=== PATIENT | male | born 1995 | race African-American/Black ===

== ENCOUNTER 2020-06-08 19:00 | Inpatient (IN) | payer OTHER ==
[2020-06-08 19:19] VITALS: BMI 22.9
[2020-06-08] MEDS ORDERED: SODIUM CHLORIDE 1,000 ML IV STA (19:19)
[2020-06-08] MEDS ORDERED: ACETAMINOPHEN 1000 MG/100 ML VIAL (NON FORMULARY) IVPB ONE (19:19)
--- NOTE | 2020-06-08 19:21 | PDOC ---
Rapid Medical Evaluation Time Seen by Provider: 06/08/20 19:19 Medical Evaluation: Vital Signs Temp Pulse Resp BP Pulse Ox 101.6 F H 93 H 19 112/66 100 06/08/20 19:14 06/08/20 19:14 06/08/20 19:14 06/08/20 19:14 06/08/20 19:14 06/08/20 19:20 CC: ate out yesterday and started vomiting an hour after and now feels dehydrated and weak Exam: febrile, no abd tenderness, Plan: labs, ivf, Discharge Disposition - Diagnosis Vomiting - Referrals - Patient Instructions - Post Discharge Activity
[2020-06-08] MEDS ORDERED: ACETAMINOPHEN INJECTION 100 ML IVPB ONE (21:40)
[2020-06-08 21:53] LABS: BASO % 0.3 % (0-2.0); EOS % 0.1 % (0-4.5); HEMATOCRIT 38.5 % (35.4-49); HEMOGLOBIN 12.8 GM/dL (11.7-16.9); LYMPH % 8.1 % (8-40); MCH 29.7 pg (25.7-33.7); MCHC 33.1 g/dl (32.0-35.9); MEAN CELL VOLUME 89.7 fl (80-96); MEAN PLT VOLUME 8.6 fl (7.5-11.1); MONO % 5.5 % (3.8-10.2); PLATELET COUNT 181 K/MM3 (134-434); RBC 4.29 M/mm3 (4.00-5.60); RDW 14.2 % (11.9-15.9); WHITE BLOOD COUNT 18.2 K/mm3 (4.0-10.0)
[2020-06-08 22:33] LABS: ALBUMIN 3.8 g/dl (3.4-5.0); BLOOD UREA NITROGEN 9.8 mg/dL (7-18); CALCIUM 9.4 mg/dL (8.5-10.1); CREATININE 1.1 mg/dL (0.55-1.3); MAGNESIUM 1.9 mg/dL (1.8-2.4); POTASSIUM 4.1 mmol/L (3.5-5.1); TOT PROT 7.7 g/dl (6.4-8.2)
[2020-06-08 22:47] LABS: BILIRUBIN,TOTAL 0.9 mg/dL (0.2-1)
[2020-06-08 23:24] LABS: PH,URINE 6.5 (5.0-8.0); URINE APPEARANCE CLEAR; URINE BILIRUBIN NEGATIVE (NEGATIVE); URINE COLOR YELLOW; URINE GLUCOSE (UA) NEGATIVE (NEGATIVE); URINE KETONE NEGATIVE (NEGATIVE); URINE LEUK ESTERASE NEGATIVE (NEGATIVE); URINE NITRITE NEGATIVE (NEGATIVE); URINE PROTEIN NEGATIVE (NEGATIVE)
--- NOTE | 2020-06-09 00:05 | PDOC ---
*Physical Exam - Vital Signs Last Vital Signs Temp Pulse Resp BP Pulse Ox 99.9 F H 78 18 105/64 100 06/08/20 23:03 06/08/20 23:03 06/08/20 23:03 06/08/20 23:03 06/08/20 23:03 - Physical Exam 06/09/20 00:02 - Physical Exam General Appearance: Nourished, Appropriately Dressed, No Distress HEENT: EOMI, Normal Voice, No Pharyngeal Erythema, No Muffled/Hoarse voice, No T onsillar Exudate, No Tonsillar Erythema, No Nasal Congestion, No Rhinorrhea, Hearing Grossly Normal Neck: Supple, No Lymphadenopathy (R), No Lymphadenopathy (L), No Rigidity, No Decreased range of motion Respiratory/Chest: Lungs Clear, Normal Breath Sounds. No Respiratory Distress, No Accessory Muscle Use Cardiovascular: Regular Rhythm, Regular Rate, S1, S2 Gastrointestinal/Abdominal: Normal Bowel Sounds, Soft. Non-tender, No Guarding, No Rebound, No Rigidity; no reproducible abdominal tenderness. Musculoskeletal: Normal Inspection. No Decreased Range of Motion; right foot with quarter sized area to the medial aspect of the midfoot with induration and erythema appreciated. Significant swelling of the entire right foot. DP and PT pulses intact. Erythema appreciated without red streaking. Extremity: Normal Capillary Refill, Normal Inspection Integumentary: Normal Color, Dry. No Rash Neurologic: gluing machine offbearer II-XII NML intact, Fully Oriented, Alert, Normal Mood/Affect, Normal Response ED Treatment Course - LABORATORY CBC & Chemistry Diagram: 06/08/20 21:30 06/08/20 21:30 - ADDITIONAL ORDERS Additional order review: Laboratory Results 06/08/20 06/08/20 23:16 21:30 Sodium 135 L Potassium 4.1 Chloride 102 Carbon Dioxide 26 Anion Gap 8 BUN 9.8 Creatinine 1.1 Est GFR (CKD-EPI)AfAm 108.32 Est GFR (CKD-EPI)NonAf 93.46 Random Glucose 88 Calcium 9.4 Magnesium 1.9 Total Bilirubin 0.9 AST 36 ALT 24 Alkaline Phosphatase 59 Total Protein 7.7 Albumin 3.8 Lipase 355 Urine Color Yellow Urine Appearance Clear Urine pH 6.5 Ur Specific [place] 1.012 Urine Protein Negative Urine Glucose (UA) Negative Urine Ketones Negative Urine Blood Negative Urine Nitrite Negative Urine Bilirubin Negative Urine Urobilinogen 1.0 Ur Leukocyte Esterase Negative 06/08/20 21:30 RBC 4.29 MCV 89.7 MCHC 33.1 RDW 14.2 MPV 8.6 Neutrophils % 86.0 H Lymphocytes % 8.1 Monocytes % 5.5 Eosinophils % 0.1 Basophils % 0.3 - RADIOLOGY Radiology Studies Ordered: Category Date Time Status CHEST PA & LAT [RAD] Stat Radiology 06/08/20 22:37 Completed - Medications Given in the ED: ED Medications Discontinued Medications Generic Name Dose Route Start Last Admin Trade Name Mariela PRN Reason Stop Dose Admin Acetaminophen 1,000 mg 06/08/20 19:19 06/08/20 21:40 Ofirmev Injection - IVPB 06/08/20 19:20 1,000 mg ONCE ONE Administration Sodium Chloride 1,000 mls @ 1,000 mls/hr 06/08/20 19:19 06/08/20 21:39 Normal Saline - IV 06/08/20 20:18 1,000 mls/hr ASDIR STA Administration Medical Decision Making - Medical Decision Making 06/09/20 00:04 Assessment: The patient was endorsed to me by JOSÉ MIGUEL Foley for continuation of car [employer]. The patient is a 25-year-old male with right foot cellulitis with medial midfoot induration, and elevated WBC and fevers. Plan: -Labs show an elevated white count of 18.2k -Chest x-ray is negative for acute pathology -We will treat the patient for a right foot cellulitis with IV vancomycin and ceftriaxone and will admit for further evaluation and treatment -The patient understands and agrees with this treatment plan and he is stable for admission. Admitting team paged. 06/09/20 00:24 Pt endorsed to hospitalist team and accepted to Dr. Loraine Vigil's service. Pt stable at time of endorsement. Discharge - Discharge Information Problems reviewed: Yes Clinical Impression/Diagnosis: Vomiting, Cellulitis of right foot Condition: Stable - Admission Yes - Follow up/Referral Referrals: Sophy Jean MD [Primary Care Provider] - - Patient Discharge Instructions - Post Discharge Activity
[2020-06-09] MEDS ORDERED: VANCOMYCIN 1 GM in D5W (PRE-DOCKED) 1,000 MG/250 ML IVPB ONE (00:06)
[2020-06-09] MEDS ORDERED: CEFTRIAXONE 1,000 MG in DEXTROSE 5%-WATER - 50 ML IVPB ONE (00:06)
[2020-06-09] MEDS ORDERED: VANCOMYCIN 1 GRAM (PRE-DOCKED) 1,000 MG/250 ML BAG IVPB ONE (00:16)
[2020-06-09] MEDS ORDERED: CEFTRIAXONE 1 GM/50 ML BAG ONE (00:16)
--- NOTE | 2020-06-09 01:06 | PN ---
Teaching Attending Note Name of Resident: Tammi Aguilar ATTENDING PHYSICIAN STATEMENT I saw and evaluated the patient. I reviewed the resident's note and discussed the case with the resident. I agree with the resident's findings and plan as documented. SUBJECTIVE: 25yoM without significant PMH who presents with 1 day of nausea and vomiting, fevers/chills, and right foot pain. Patient reports about a month ago he had significant nausea/vomiting for about a day that resolved spontaneously. Last night he had similar symptoms, believes the emesis may have been pink tinged but didn't look closely. He had about five episodes and developed subjective fever and chills, which improved after sitting in a hot shower for about 3 hours this morning. The fever and chills returned later in the day so he decided to present to the ED, which is when he first noticed pain on his right foot as he was walking. Denies trauma, IVDU, insect bites. Does admit to chronic marijuana use daily. Patient was febrile to 101.6F in the ED, labs notable for WBC 18.2. Tender nodule noted on the plantar aspect of his right foot. XR of the foot was ob tained, read pending. He received ceftriaxone, vancomycin, and 1L NS bolus and is admitted for further management. At time of evaluation, patient notes the swelling on his foot and the nodule appear larger than at the time of arrival. ROS: (+) right foot pain, redness, fever/chills (-) diarrhea, constipation, abdominal pain, paresthesias OBJECTIVE: Vital Signs - 24 hr 06/08/20 06/08/20 19:14 23:03 Temperature 101.6 F H 99.9 F H Pulse Rate 93 H Pulse Rate [ 78 Apical] Respiratory 19 18 Rate Blood Pressure 112/66 Blood Pressure 105/64 [Right Arm] O2 Sat by Pulse 100 100 Oximetry (%) Exam: Gen: Well-appearing young man, no acute distress HEENT: Anicteric sclera CV: RRR, no MRG Resp: Unlabored breathing, CTAB Abd: Soft, NT, ND Derm: Right foot nonpitting edema to ankle. Roughly 2cm x 3cm area of discrete swelling on medial/plantar aspect of right foot at the arch, tender to palpation, fluctuance not appreciated. No open wound or purulence. Mild erythema above the nodule, no warmth to the touch Neuro: CN II-XII grossly intact Psych: AOx3, appropriate mood/affect Laboratory Results - last 24 hr 06/08/20 06/08/20 06/08/20 21:30 21:30 23:16 WBC 18.2 H RBC 4.29 Hgb 12.8 Hct 38.5 MCV 89.7 MCH 29.7 MCHC 33.1 RDW 14.2 Plt Count 181 MPV 8.6 Absolute Neuts (auto) 15.7 H Neutrophils % 86.0 H Lymphocytes % 8.1 Monocytes % 5.5 Eosinophils % 0.1 Basophils % 0.3 Nucleated RBC % 0 Sodium 135 L Potassium 4.1 Chloride 102 Carbon Dioxide 26 Anion Gap 8 BUN 9.8 Creatinine 1.1 Est GFR (CKD-EPI)AfAm 108.32 Est GFR (CKD-EPI)NonAf 93.46 Random Glucose 88 Calcium 9.4 Magnesium 1.9 Total Bilirubin 0.9 AST 36 ALT 24 Alkaline Phosphatase 59 Total Protein 7.7 Albumin 3.8 Lipase 355 Urine Color Yellow Urine Appearance Clear Urine pH 6.5 Ur Specific [place] 1.012 Urine Protein Negative Urine Glucose (UA) Negative Urine Ketones Negative Urine Blood Negative Urine Nitrite Negative Urine Bilirubin Negative Urine Urobilinogen 1.0 Ur Leukocyte Esterase Negative ASSESSMENT AND PLAN: 25yoM without significant PMH who presents with 1 day of nausea and vomiting, fevers/chills, and right foot pain admitted with sepsis secondary to cellulitis of the right foot. Sepsis secondary to cellulitis Meets sepsis criteria with fever, leukocytosis Suspect purulent cellulitis given discrete swelling on the foot s/p ceftriaxone/vancomycin in ED Blood cultures obtained after first dose of antibiotics - US to look for abscess - f/u blood cultures - continue empiric vancomycin Nausea/vomiting; resolved Abdominal exam benign, last episode of vomiting was >12h prior to admission and is currently asymptomatic In setting of chronic/frequent marijuana use; improved with hot shower, suggestive of cannabinoid hyperemesis Reports possible pink-tinged emesis; hgb within normal - advised marijuana cessation - Zofran PRN - trend hgb DVT ppx: Lovenox subq
[2020-06-09] MEDS ORDERED: ONDANSETRON 4 MG TABLET PO ONE (01:51)
--- NOTE | 2020-06-09 02:11 | HP ---
CHIEF COMPLAINT: I was vomiting PCP: none stated HISTORY OF PRESENT ILLNESS: 25yo M with no PMHx who presents with nausea and emesis since Saturday evening and R foot cellulitis. Patient felt he might have eaten something bad and had about 4 episodes of pink/red emesis. He had a similar episode of emesis about a month ago, which he was able to overcome in one night by drinking gatorade. However, this time it felt worse which is why he came into the ED. Patient also noticed that he had a "bump" on his right foot and that his foot was swollen. He said the foot bump was new to him but that his food had been swollen in the past. Also, patient smokes marihuana daily and he took a 3h-long hot shower yesterday that helped him overcome some of the nausea. Patient endorsed feeling fevers, chills, mild headaches that he describes as pressure, lightheadedness, occasional vertigo, and extensive diaphoresis. Patient denied dysuria, urinary frequency, diarrhea or constipation. Patient is sexually active with one female partner, they do not use barrier contraception. COVID pending. 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 Home: lives with his grandmother Allergies No Known Allergies Allergy (Verified 06/08/20 21:14) HOME MEDICATIONS: none REVIEW OF SYSTEMS as per HPI PHYSICAL EXAMINATION Vital Signs - 24 hr 06/08/20 06/08/20 19:14 23:03 Temperature 101.6 F H 99.9 F H Pulse Rate 93 H Pulse Rate [ 78 Apical] Respiratory 19 18 Rate Blood Pressure 112/66 Blood Pressure 105/64 [Right Arm] O2 Sat by Pulse 100 100 Oximetry (%) GENERAL: AAM, average to thin body habitus, comfortably sitting in a chair, AAO x3 and fully oriented, in no acute distress HEAD: Normal with no signs of trauma EYES: PERRL, extraocular movements intact, sclera anicteric NECK: no lymphadenopathy appreciated LUNGS: CTAB without any wheezing HEART: RRR, normal S1 and S2 without murmur ABDOMEN: Soft, nontender, not distended, active bowel sounds MUSCULOSKELETAL: Normal range of motion at all joints EXTREMITIES: 2+ radial pulses and 1+ dorsalis pedis pulses palpable, bilateral lower legs are warm-hot to touch, well-perfused, bilateral legs nontender to touch, no peripheral lower leg edema. R foot edematous, non pitting, with a medial nodule/cyst in area of sustentaculum lien which is tender to palpation and with mild surrounding erythema. Skin in 2nd-4th toe webspaces mildly macerated and flaking, no active open wounds/lesions noted. L foot non- edematous, nontender, nonerythematous. Skin in 3rd and 4th toe webspace also mildly macerated and flaking without active lesions. Sensation intact bilaterally in all extremities. NEUROLOGICAL: Cranial nerves II-XII grossly intact with normal speech and symmetrical facial movements. Normal gait. PSYCHIATRIC: Cooperative, interactive, responds appropriately. Good eye contact. "feels okay" mood and affect congruent with stated mood. SKIN: no rashes or lesions noted Laboratory Results - last 24 hr 06/08/20 06/08/20 06/08/20 21:30 21:30 23:16 WBC 18.2 H RBC 4.29 Hgb 12.8 Hct 38.5 MCV 89.7 MCH 29.7 MCHC 33.1 RDW 14.2 Plt Count 181 MPV 8.6 Absolute Neuts (auto) 15.7 H Neutrophils % 86.0 H Lymphocytes % 8.1 Monocytes % 5.5 Eosinophils % 0.1 Basophils % 0.3 Nucleated RBC % 0 Sodium 135 L Potassium 4.1 Chloride 102 Carbon Dioxide 26 Anion Gap 8 BUN 9.8 Creatinine 1.1 Est GFR (CKD-EPI)AfAm 108.32 Est GFR (CKD-EPI)NonAf 93.46 Random Glucose 88 Calcium 9.4 Magnesium 1.9 Total Bilirubin 0.9 AST 36 ALT 24 Alkaline Phosphatase 59 Total Protein 7.7 Albumin 3.8 Lipase 355 Urine Color Yellow Urine Appearance Clear Urine pH 6.5 Ur Specific [place] 1.012 Urine Protein Negative Urine Glucose (UA) Negative Urine Ketones Negative Urine Blood Negative Urine Nitrite Negative Urine Bilirubin Negative Urine Urobilinogen 1.0 Ur Leukocyte Esterase Negative ASSESSMENT/PLAN: 25yo M with no PMHx who presents with nausea and emesis since Saturday evening and R foot cellulitis. ED course was remarkable for Temp 101.6F, Pulse 93, and WBC 18.2 with neutrophilic predominance. Patient admitted for further management of sepsis 2/2 R foot cellulitis. #R foot cellulitis received IV vancomycin and ceftriaxone in ED - blood cultures were drawn after - ordered soft tissue US to determine if cellulitis is purulent vs non-purulent - f/u - if abscess present, patient pay need L&D - continue IV vancomycin 1g BID - may consider ordering STD testing including chlamydia and gonorrhea #emesis likely 2/2 to daily marihuana use currently resolved - recommended decreasing marihuana usage - ordered zofran PRN #PPX - DVT: lovenox #FEN - no standing fluids - replete lytes PRN - regular diet #Dispo: medSur Family Medical History Family History: As Documented Visit type - Emergency Visit Emergency Visit: Yes ED Registration Date: 06/09/20 Care time: The patient presented to the Emergency Department on the above date and was hospitalized for further evaluation of their emergent condition. - New Patient This patient is new to me today: Yes Date on this admission: 06/09/20 - Critical Care Critical Care patient: No ATTENDING PHYSICIAN STATEMENT I saw and evaluated the patient. I reviewed the resident's note and discussed the case with the resident. I agree with the resident's findings and plan as documented. SUBJECTIVE: OBJECTIVE: ASSESSMENT AND PLAN:
[2020-06-09 08:27] LABS: BASO % 0.4 % (0-2.0); EOS % 0.7 % (0-4.5); HEMOGLOBIN 12.1 GM/dL (11.7-16.9); LYMPH % 12.5 % (8-40); MCH 29.2 pg (25.7-33.7); MCHC 32.7 g/dl (32.0-35.9); MEAN CELL VOLUME 89.5 fl (80-96); MEAN PLT VOLUME 8.7 fl (7.5-11.1); MONO % 6.2 % (3.8-10.2); NEUT % 80.2 % (42.8-82.8); PLATELET COUNT 169 K/MM3 (134-434); RBC 4.14 M/mm3 (4.00-5.60); RDW 14.4 % (11.9-15.9); WHITE BLOOD COUNT 12.1 K/mm3 (4.0-10.0)
[2020-06-09 08:45] LABS: ALBUMIN 3.3 g/dl (3.4-5.0); BILIRUBIN,TOTAL 0.4 mg/dL (0.2-1); BLOOD UREA NITROGEN 10.5 mg/dL (7-18); CALCIUM 8.4 mg/dL (8.5-10.1); MAGNESIUM 1.7 mg/dL (1.8-2.4); POTASSIUM 4.1 mmol/L (3.5-5.1); TOT PROT 6.6 g/dl (6.4-8.2)
[2020-06-09 08:47] LABS: PHOSPHOROUS 2.4 mg/dL (2.5-4.9)
[2020-06-09] MEDS ORDERED: PT OWN MED DRAWER 7, Y5N ONE (10:35)
[2020-06-09] MEDS: ENOXAPARIN NA (PORCINE) 40 MG/0.4 ML DISP.SYRIN SQ SCH ×2 (10:37→10:42)
[2020-06-09] MEDS ORDERED: VANCOMYCIN 1 GM in D5W (PRE-DOCKED) 1,000 MG/250 ML IVPB SCH ×2 (11:15→13:00)
--- NOTE | 2020-06-09 13:16 | PN ---
Teaching Attending Note Name of Resident: Rose Jay ATTENDING PHYSICIAN STATEMENT I saw and evaluated the patient. I reviewed the resident's note and discussed the case with the resident. I agree with the resident's findings and plan as documented. SUBJECTIVE: Seen and examined at bedside. Patient reports nausea and vomiting have reso lved. Afebrile since starting antibiotics. White count has improved. Pending ultrasound of foot to check for drainable abscess \ OBJECTIVE Last Vital Signs Temp Pulse Resp BP Pulse Ox 98.6 F 70 18 101/57 L 98 06/09/20 08:45 06/09/20 08:45 06/09/20 08:45 06/09/20 08:45 06/09/20 08:45 PE: Per resident note Labs/Imaging: reviewed ASSESSMENT/PLAN 25 old male with no past medical history presents with nausea and vomiting and found to have fever, white count, and suspected right foot cellulitis. #Sepsis secondary to cellulitis of right foot Appears to be area of purulence. Pending ultrasound Vancomycin ID consult #Nausea and vomiting: Resolved Likely atypical presentation of sepsis #DVT prophylaxis: Not required as patient young and ambulatory
[2020-06-09] MEDS: ACETAMINOPHEN 325 MG TABLET (FP) PO PRN (13:19)
[2020-06-09] MEDS ORDERED: DEXTROSE 5%-WATER - 50 ML IVPB ONE (14:01)
[2020-06-09] MEDS ORDERED: cefTRIAXone SODIUM 1 GM VIAL ONE (14:01)
[2020-06-09] MEDS: CEFTRIAXONE 1 GM in DEXTROSE 5%-WATER - 50 ML IVPB SCH (14:02)
--- NOTE | 2020-06-09 14:02 | CON.ID ---
Consult - Smoking History Smoking history: Never smoked Home Medications - Allergies Allergies/Adverse Reactions: Allergies Allergy/AdvReac Type Severity Reaction Status Date / Time No Known Allergies Allergy Verified 06/08/20 21:14 Physical Exam Vital Signs: Vital Signs Temperature 98.6 F 06/09/20 08:45 Pulse Rate 70 06/09/20 08:45 Respiratory Rate 18 06/09/20 08:45 Blood Pressure 101/57 L 06/09/20 08:45 O2 Sat by Pulse Oximetry (%) 98 06/09/20 08:45 Labs: CBC, BMP 06/09/20 07:00 06/09/20 07:00
--- NOTE | 2020-06-09 15:28 | EKG ---
Test Reason : Blood Pressure : / mmHG Vent. Rate : 061 BPM Atrial Rate : 061 BPM P-R Int : 134 ms QRS Dur : 078 ms QT Int : 406 ms P-R-T Axes : 066 065 044 degrees QTc Int : 408 ms NORMAL SINUS RHYTHM NORMAL ECG NO PREVIOUS ECGS AVAILABLE Confirmed by SERENITY RIDDLE MD ([id number]) on 06/09/2020 3:27:56 PM Referred By: Confirmed By:SERENITY RIDDLE MD
--- NOTE | 2020-06-09 15:56 | PN ---
Physical Exam: SUBJECTIVE: Patient seen and examined at bedside. No acute events overnight. Pt states he no longer has nausea/vomiting. Tolerating PO diet well. States he still has R foot pain. OBJECTIVE: Vital Signs Period Temp Pulse Resp BP Sys/Schmid Pulse Ox Last 24 Hr 97.9 F-101.6 F 54-93 18-19 101-123/57-70 98-100 GENERAL: AAM, average to thin body habitus, comfortably sitting in a chair, AAO x3 and fully oriented, in no acute distress HEAD: Normal with no signs of trauma EYES: PERRL, extraocular movements intact, sclera anicteric NECK: no lymphadenopathy appreciated LUNGS: CTAB without any wheezing HEART: RRR, normal S1 and S2 without murmur ABDOMEN: Soft, nontender, not distended, active bowel sounds MUSCULOSKELETAL: Normal range of motion at all joints EXTREMITIES: 2+ radial pulses and 1+ dorsalis pedis pulses palpable, bilateral lower legs are warm-hot to touch, well-perfused, bilateral legs nontender to touch, no peripheral lower leg edema. R foot edematous, non pitting, with a medial nodule/cyst in area of sustentaculum lien which is tender to palpation and with mild surrounding erythema. Skin in 2nd-4th toe webspaces mildly macerated and flaking, no active open wounds/lesions noted. L foot non- edematous, nontender, nonerythematous. Skin in 3rd and 4th toe webspace also mildly macerated and flaking without active lesions. Sensation intact bilaterally in all extremities. NEUROLOGICAL: Cranial nerves II-XII grossly intact with normal speech and symmetrical facial movements. Normal gait. PSYCHIATRIC: Cooperative, interactive, responds appropriately. Good eye contact. "feels okay" mood and affect congruent with stated mood. SKIN: no rashes or lesions noted Laboratory Results - last 24 hr 06/08/20 06/08/20 06/08/20 21:30 21:30 23:16 WBC 18.2 H RBC 4.29 Hgb 12.8 Hct 38.5 MCV 89.7 MCH 29.7 MCHC 33.1 RDW 14.2 Plt Count 181 MPV 8.6 Absolute Neuts (auto) 15.7 H Neutrophils % 86.0 H Lymphocytes % 8.1 Monocytes % 5.5 Eosinophils % 0.1 Basophils % 0.3 Nucleated RBC % 0 Sodium 135 L Potassium 4.1 Chloride 102 Carbon Dioxide 26 Anion Gap 8 BUN 9.8 Creatinine 1.1 Est GFR (CKD-EPI)AfAm 108.32 Est GFR (CKD-EPI)NonAf 93.46 Random Glucose 88 Calcium 9.4 Phosphorus Magnesium 1.9 Total Bilirubin 0.9 AST 36 ALT 24 Alkaline Phosphatase 59 Total Protein 7.7 Albumin 3.8 Lipase 355 Urine Color Yellow Urine Appearance Clear Urine pH 6.5 Ur Specific [place] 1.012 Urine Protein Negative Urine Glucose (UA) Negative Urine Ketones Negative Urine Blood Negative Urine Nitrite Negative Urine Bilirubin Negative Urine Urobilinogen 1.0 Ur Leukocyte Esterase Negative 06/09/20 06/09/20 07:00 07:00 WBC 12.1 H RBC 4.14 Hgb 12.1 Hct 37.0 MCV 89.5 MCH 29.2 MCHC 32.7 RDW 14.4 Plt Count 169 MPV 8.7 Absolute Neuts (auto) 9.7 H Neutrophils % 80.2 Lymphocytes % 12.5 D Monocytes % 6.2 Eosinophils % 0.7 D Basophils % 0.4 Nucleated RBC % 0 Sodium 138 Potassium 4.1 Chloride 106 Carbon Dioxide 27 Anion Gap 6 L BUN 10.5 Creatinine 1.0 Est GFR (CKD-EPI)AfAm 121.55 Est GFR (CKD-EPI)NonAf 104.88 Random Glucose 90 Calcium 8.4 L Phosphorus 2.4 L Magnesium 1.7 L Total Bilirubin 0.4 AST 19 ALT 20 Alkaline Phosphatase 50 Total Protein 6.6 Albumin 3.3 L Lipase Urine Color Urine Appearance Urine pH Ur Specific [place] Urine Protein Urine Glucose (UA) Urine Ketones Urine Blood Urine Nitrite Urine Bilirubin Urine Urobilinogen Ur Leukocyte Esterase Active Medications Generic Name Dose Route Start Last Admin Trade Name Freq PRN Reason Stop Dose Admin Acetaminophen 650 mg 06/09/20 13:10 06/09/20 13:19 Tylenol - PO 650 mg Q4H PRN Administration PAIN LEVEL 6-10 Ceftriaxone Sodium 1 gm/ 50 mls @ 100 mls/hr 06/09/20 13:45 06/09/20 14:02 Dextrose IVPB 100 mls/hr DAILY NAN Administration ASSESSMENT/PLAN: 25M with no PMHx who presents with nausea and emesis since Saturday evening and R foot cellulitis. Patient admitted for further management of sepsis 2/2 R foot cellulitis. #R foot cellulitis -received IV vancomycin and ceftriaxone in ED - blood cultures were drawn after -ordered soft tissue US to determine if cellulitis is purulent vs non-purulent - f/u - if abscess present, patient pay need L&D -continue IV Vancomycin 1g QD (started 06/09/20) -Ceftriaxone 1gm QD (started 06/09/20) -Tylenol PRN for pain -ID consulted -UA neg, BCx/UCx pending -WBC trending down 18.2 --> 12.1 #Emesis; Resolved. -Likely atypical presentation of sepsis vs. ? marijuana use -Zofran PRN nausea #Prophylaxis DVT: early ambulation #FEN -PO hydration -replete lytes PRN -regular diet #Dispo -cont to monitor on med-surg Visit type - Emergency Visit Emergency Visit: Yes ED Registration Date: 06/09/20 Care time: The patient presented to the Emergency Department on the above date and was hospitalized for further evaluation of their emergent condition. - New Patient This patient is new to me today: Yes Date on this admission: 06/09/20 - Critical Care Critical Care patient: No - Discharge Referral Referred to [facility] No ATTENDING PHYSICIAN STATEMENT I saw and evaluated the patient. I reviewed the resident's note and discussed the case with the resident. I agree with the resident's findings and plan as documented. SUBJECTIVE: OBJECTIVE: ASSESSMENT AND PLAN:
[2020-06-09] MEDS ORDERED: NAPH,MB-DB/K PH,MBDB POWDER PACKET PO ONE (15:57)
[2020-06-09] MEDS ORDERED: MAGNESIUM OXIDE 400 MG TABLET (FP) PO ONE (15:57)
[2020-06-10 08:07] LABS: BASO % 0.6 % (0-2.0); EOS % 2.4 % (0-4.5); HEMATOCRIT 37.9 % (35.4-49); HEMOGLOBIN 12.5 GM/dL (11.7-16.9); LYMPH % 24.7 % (8-40); MCH 29.6 pg (25.7-33.7); MEAN CELL VOLUME 89.5 fl (80-96); MEAN PLT VOLUME 8.3 fl (7.5-11.1); MONO % 11.5 % (3.8-10.2); NEUT % 60.8 % (42.8-82.8); PLATELET COUNT 170 K/MM3 (134-434); RBC 4.24 M/mm3 (4.00-5.60); RDW 14.4 % (11.9-15.9); WHITE BLOOD COUNT 7.7 K/mm3 (4.0-10.0)
[2020-06-10 08:21] LABS: ALBUMIN 3.3 g/dl (3.4-5.0); BLOOD UREA NITROGEN 9.3 mg/dL (7-18); CALCIUM 8.7 mg/dL (8.5-10.1); MAGNESIUM 2.1 mg/dL (1.8-2.4); POTASSIUM 4.1 mmol/L (3.5-5.1)
[2020-06-10 08:22] LABS: BILIRUBIN,TOTAL 0.4 mg/dL (0.2-1); TOT PROT 6.7 g/dl (6.4-8.2)
[2020-06-10] MEDS ORDERED: PT OWN MED DRAWER 7, Y5N ONE (09:53)
[2020-06-10] MEDS ORDERED: cefTRIAXone SODIUM 1 GM VIAL ONE (09:54)
[2020-06-10] MEDS ORDERED: DEXTROSE 5%-WATER - 50 ML IVPB ONE (09:54)
[2020-06-10] MEDS: CEFTRIAXONE 1 GM in DEXTROSE 5%-WATER - 50 ML IVPB SCH (10:02)
--- NOTE | 2020-06-10 11:40 | PN ---
Progress Note, Physician History of Present Illness: stable still with pain in the leg - Current Medication List Current Medications: Active Medications Acetaminophen (Tylenol -) 650 mg PO Q4H PRN PRN Reason: PAIN LEVEL 6-10 Last Admin: 06/09/20 13:19 Dose: 650 mg Documented by: Ceftriaxone Sodium 1 gm/ (Dextrose) 50 mls @ 100 mls/hr IVPB DAILY NAN Last Admin: 06/10/20 10:02 Dose: 100 mls/hr Documented by: - Objective Vital Signs: Vital Signs Temperature 98.1 F 06/10/20 06:00 Pulse Rate 72 06/10/20 06:00 Respiratory Rate 20 06/10/20 06:00 Blood Pressure 111/64 06/10/20 06:00 O2 Sat by Pulse Oximetry (%) 98 06/10/20 06:00 Constitutional: Yes: No Distress, Calm Cardiovascular: Yes: S1, S2 Respiratory: Yes: Regular, CTA Bilaterally Gastrointestinal: Yes: Normal Bowel Sounds, Soft Musculoskeletal: Yes: WNL Extremities: Yes: WNL Neurological: Yes: Alert, Oriented Psychiatric: Yes: Alert, Oriented Labs: CBC, BMP 06/10/20 07:00 06/10/20 07:00 Assessment/Plan 25yo M with no PMHx who presents with nausea and emesis since Saturday evening and R foot cellulitis. ED course was remarkable for Temp 101.6F, Pulse 93, and WBC 18.2 with neutrophilic predominance. Patient admitted for further management of sepsis 2/2 R foot cellulitis. R foot cellulitis emesis marihuana use u/s seen patient has collection in the foot might need drainage continue abx
--- NOTE | 2020-06-10 12:00 | PN ---
Teaching Attending Note Name of Resident: Daksha Nur ATTENDING PHYSICIAN STATEMENT I saw and evaluated the patient. I reviewed the resident's note and discussed the case with the resident. I agree with the resident's findings and plan as documented. SUBJECTIVE: Seen and examined at bedside. Patient reports foot pain is improving. Hemody namically stable. Ultrasound shows complex collection over a ventral surface of the calcaneus that may represent a hematoma or infection/abscess. Podiatry consulted OBJECTIVE Last Vital Signs Temp Pulse Resp BP Pulse Ox 98.1 F 72 20 111/64 98 06/10/20 06:00 06/10/20 06:00 06/10/20 06:00 06/10/20 06:00 06/10/20 06:00 PE: Per resident note Labs/Imaging: reviewed ASSESSMENT/PLAN 25 old male with no past medical history presents with nausea and vomiting and found to have fever, white count, and suspected right foot cellulitis. #Sepsis secondary to cellulitis of right foot Ultrasound shows collection over a ventral surface of the calcaneus that may resent a hematoma or infection/abscess. Podiatry consulted -ceftriaxone ID on board #Nausea and vomiting: Resolved Likely atypical presentation of sepsis #DVT prophylaxis: Not required as patient young and ambulatory
--- NOTE | 2020-06-10 12:31 | PN ---
Physical Exam: SUBJECTIVE: Patient seen and examined this AM. No new complaints. OBJECTIVE: Vital Signs Period Temp Pulse Resp BP Sys/Shcmid Pulse Ox Last 24 Hr 98.1 F-98.9 F 63-72 18-20 111-128/54-71 98-99 GENERAL: A&Ox3, NAD HEAD: NCTA EYES: PERRL, EOMI NECK: Supple LUNGS: Diminished breath sounds at the bases, No wheezes HEART: RRR, S1 S2 ABDOMEN: Soft, nontender, not distended, + bowel sounds EXTREMITIES: no edema. R foot with mild overlying erythema, 1cm in diameter over the medial/plantar aspect, minimal tenderness to palpation NEUROLOGICAL: Cranial nerves II-XII grossly intact with normal speech and symmetrical facial movements. Normal gait. PSYCHIATRIC: Cooperative, interactive, responds appropriately. Good eye contact. "feels okay" mood and affect congruent with stated mood. SKIN: no rashes or lesions noted Laboratory Results - last 24 hr 06/08/20 06/10/20 06/10/20 20:21 07:00 07:00 WBC 7.7 RBC 4.24 Hgb 12.5 Hct 37.9 MCV 89.5 MCH 29.6 MCHC 33.0 RDW 14.4 Plt Count 170 MPV 8.3 Absolute Neuts (auto) 4.7 Neutrophils % 60.8 D Lymphocytes % 24.7 D Monocytes % 11.5 H D Eosinophils % 2.4 D Basophils % 0.6 Nucleated RBC % 0 Sodium 136 Potassium 4.1 Chloride 103 Carbon Dioxide 28 Anion Gap 5 L BUN 9.3 Creatinine 1.0 Est GFR (CKD-EPI)AfAm 121.55 Est GFR (CKD-EPI)NonAf 104.88 Random Glucose 85 Calcium 8.7 Phosphorus 3.0 Magnesium 2.1 Total Bilirubin 0.4 AST 17 ALT 21 Alkaline Phosphatase 44 L Total Protein 6.7 Albumin 3.3 L COVID-19 (JAG) Not detected Active Medications Generic Name Dose Route Start Last Admin Trade Name Freq PRN Reason Stop Dose Admin Acetaminophen 650 mg 06/09/20 13:10 06/09/20 13:19 Tylenol - PO 650 mg Q4H PRN Administration PAIN LEVEL 6-10 Ceftriaxone Sodium 1 gm/ 50 mls @ 100 mls/hr 06/09/20 13:45 06/10/20 10:02 Dextrose IVPB 100 mls/hr DAILY NAN Administration ASSESSMENT/PLAN: 25 y/o M with no PMHx who presents with nausea and emesis since Saturday evening and admitted with R foot cellulitis. #R foot cellulitis -Continue IV ceftriaxone (started 06/09/20) -Soft tissue US concerning for hematoma vs abscess -Case discussed with Podiatry who recommend LE MRI noncon, Uric acid -Analgesia via Tylenol -ID consulted, appreciate rec's #Emesis; Resolved. #Prophylaxis DVT: early ambulation #FEN -PO hydration -replete lytes PRN -regular diet #Dispo -cont to monitor on med-surg Visit type - Emergency Visit Emergency Visit: Yes ED Registration Date: 06/09/20 Care time: The patient presented to the Emergency Department on the above date and was hospitalized for further evaluation of their emergent condition. - New Patient This patient is new to me today: Yes Date on this admission: 06/10/20 - Critical Care Critical Care patient: No - Discharge Referral Referred to [facility] Med P.C.: No ATTENDING PHYSICIAN STATEMENT I saw and evaluated the patient. I reviewed the resident's note and discussed the case with the resident. I agree with the resident's findings and plan as documented. SUBJECTIVE: OBJECTIVE: ASSESSMENT AND PLAN:
[2020-06-11] MEDS: ACETAMINOPHEN 325 MG TABLET (FP) PO PRN (00:56)
[2020-06-11] MEDS ORDERED: DEXTROSE 5%-WATER - 50 ML IVPB ONE (09:36)
[2020-06-11] MEDS ORDERED: cefTRIAXone SODIUM 1 GM VIAL ONE (09:36)
[2020-06-11] MEDS: CEFTRIAXONE 1 GM in DEXTROSE 5%-WATER - 50 ML IVPB SCH (09:39)
--- NOTE | 2020-06-11 11:26 | PN ---
Progress Note, Physician History of Present Illness: stable doing well looks like the collection has resolved foot is soft - Current Medication List Current Medications: Active Medications Acetaminophen (Tylenol -) 650 mg PO Q4H PRN PRN Reason: PAIN LEVEL 6-10 Last Admin: 06/11/20 00:56 Dose: 650 mg Documented by: Ceftriaxone Sodium 1 gm/ (Dextrose) 50 mls @ 100 mls/hr IVPB DAILY NAN Last Admin: 06/11/20 09:39 Dose: 100 mls/hr Documented by: - Objective Vital Signs: Vital Signs Temperature 98.7 F 06/11/20 05:16 Pulse Rate 67 06/11/20 05:16 Respiratory Rate 06/11/20 05:16 Blood Pressure 116/59 L 06/11/20 05:16 O2 Sat by Pulse Oximetry (%) 97 06/11/20 05:16 Constitutional: Yes: No Distress, Calm Cardiovascular: Yes: S1, S2 Respiratory: Yes: Regular, CTA Bilaterally Gastrointestinal: Yes: Normal Bowel Sounds, Soft Musculoskeletal: Yes: WNL Extremities: Yes: Other Neurological: Yes: Alert, Oriented Psychiatric: Yes: Alert, Oriented Labs: CBC, BMP 06/10/20 07:00 06/10/20 07:00 Assessment/Plan 25yo M with no PMHx who presents with nausea and emesis since Saturday evening and R foot cellulitis. ED course was remarkable for Temp 101.6F, Pulse 93, and WBC 18.2 with neutrophilic predominance. Patient admitted for further management of sepsis 2/2 R foot cellulitis. R foot cellulitis emesis mariana use plan continue abx can be switched to oral when ready for discharge
--- NOTE | 2020-06-11 12:48 | CONSULT ---
Consult Consult Specialty:: Podiatry - History of Present Illness Chief Complaint: pt states he feels 100% better. History of Present Illness: cellulitis right foot possible abscess - Smoking History Smoking history: Never smoked Home Medications - Allergies Allergies/Adverse Reactions: Allergies Allergy/AdvReac Type Severity Reaction Status Date / Time No Known Allergies Allergy Verified 06/10/20 09:50 - Home Medications Home Medications: Ambulatory Orders Amoxicillin/Potassium Clav [Augmentin 875-125 Tablet] 1 each PO BID #8 tablet 06/12/20 Physical Exam Vital Signs: Vital Signs Temperature 97.9 F 06/11/20 09:00 Pulse Rate 65 06/11/20 09:00 Respiratory Rate 20 06/11/20 09:00 Blood Pressure 104/63 06/11/20 09:00 O2 Sat by Pulse Oximetry (%) 96 06/11/20 09:00 Extremities: Yes: Other (no evidence of cellulitis upon examination, -tender,) Labs: CBC, BMP 06/10/20 07:00 06/10/20 07:00 Assessment/Plan resolved cellulitis abscess Awaiting mri results. will decide tx plan once mri read. will follow till dc. viewed images on pt phone from initial visit till now.
--- NOTE | 2020-06-11 14:31 | PN ---
Physical Exam: SUBJECTIVE: Patient seen and examined at bedside, admitted for R calcaneal cellulitis, and to r/o osteomyelitis, WBC count markedly improved along w/ erythema/swelling/pain, awaiting Podiatry input to see if MRI necessary v.s. DC home on PO abx. VSS. OBJECTIVE: Vital Signs Period Temp Pulse Resp BP Sys/Schmid Pulse Ox Last 24 Hr 97.9 F-98.7 F 61-69 20-20 104-128/59-71 96-100 GENERAL: The patient is awake, alert, and fully oriented, in no acute distress. HEAD: Normal with no signs of trauma. EYES: PERRL, extraocular movements intact, sclera anicteric, conjunctiva clear. No ptosis. ENT: Ears normal, nares patent, oropharynx clear without exudates, moist mucous membranes. NECK: Trachea midline, full range of motion, supple. LUNGS: Breath sounds equal, clear to auscultation bilaterally, no wheezes, no crackles, no accessory muscle use. HEART: Regular rate and rhythm, S1, S2 without murmur, rub or gallop. ABDOMEN: Soft, nontender, nondistended, normoactive bowel sounds, no guarding, no rebound, no hepatosplenomegaly, no masses. EXTREMITIES: 2+ pulses, warm, well-perfused, minimal R DP edema, minimal erythema around calcaneus, able to bare weight NEUROLOGICAL: Cranial nerves II through XII grossly intact. Normal speech, gait not observed. PSYCH: Normal mood, normal affect. SKIN: Warm, dry, normal turgor, no rashes or lesions noted Laboratory Results - last 24 hr 06/10/20 07:00 Sodium 136 Potassium 4.1 Chloride 103 Carbon Dioxide 28 Anion Gap 5 L BUN 9.3 Creatinine 1.0 Est GFR (CKD-EPI)AfAm 121.55 Est GFR (CKD-EPI)NonAf 104.88 Random Glucose 85 Uric Acid 5.0 Calcium 8.7 Phosphorus 3.0 Magnesium 2.1 Total Bilirubin 0.4 AST 17 ALT 21 Alkaline Phosphatase 44 L Total Protein 6.7 Albumin 3.3 L Active Medications Generic Name Dose Route Start Last Admin Trade Name Freq PRN Reason Stop Dose Admin Acetaminophen 650 mg 06/09/20 13:10 06/11/20 00:56 Tylenol - PO 650 mg Q4H PRN Administration PAIN LEVEL 6-10 Ceftriaxone Sodium 1 gm/ 50 mls @ 100 mls/hr 06/09/20 13:45 06/11/20 09:39 Dextrose IVPB 100 mls/hr DAILY NAN Administration ASSESSMENT/PLAN: 25 M R calcaneal cellulitis improving Marijuana abuse Plan: Cont. IV Ceftriaxone, may consider PO Augmentin 875mg BID if podiatry clears Otherwise patient will require MRI to r/o osteomyelitis DVT ppx: Ambulation Visit type - Emergency Visit Emergency Visit: Yes ED Registration Date: 06/09/20 Care time: The patient presented to the Emergency Department on the above date and was hospitalized for further evaluation of their emergent condition. - New Patient This patient is new to me today: Yes Date on this admission: 06/11/20 - Critical Care Critical Care patient: No - Discharge Referral Referred to [facility] Med P.C.: No
[2020-06-12] MEDS ORDERED: cefTRIAXone SODIUM 1 GM VIAL ONE (09:23)
[2020-06-12] MEDS ORDERED: DEXTROSE 5%-WATER - 50 ML IVPB ONE (09:23)
[2020-06-12] MEDS: CEFTRIAXONE 1 GM in DEXTROSE 5%-WATER - 50 ML IVPB SCH (09:26)
[2020-06-12] MEDS ORDERED: AMOX TR/POT CLAV 875MG/125MG TABLETS (FP) PO SCH (09:44)
[2020-06-12 12:11] VITALS: BP 113/58; PULSE 66; TEMP 98.4
--- NOTE | 2020-06-12 14:06 | DS ---
Physical Exam: SUBJECTIVE: Patient seen and examined at bedside, endorses marked improvement of R foot pain and swelling. MRI neg. for OM, stable for DC home with PO Augmentin and PCP follow up. VSS. OBJECTIVE: Vital Signs Period Temp Pulse Resp BP Sys/Schmid Pulse Ox Last 24 Hr 97.7 F-98.4 F 66-71 20-20 100-124/54-78 99-100 PHYSICAL EXAM GENERAL: The patient is awake, alert, and fully oriented, in no acute distress. HEAD: Normal with no signs of trauma. EYES: PERRL, extraocular movements intact, sclera anicteric, conjunctiva clear. ENT: Ears normal, nares patent, oropharynx clear without exudates, moist mucous membranes. NECK: Trachea midline, full range of motion, supple. LUNGS: Breath sounds equal, clear to auscultation bilaterally, no wheezes, no crackles, no accessory muscle use. HEART: Regular rate and rhythm, S1, S2 without murmur, rub or gallop. ABDOMEN: Soft, nontender, nondistended, normoactive bowel sounds, no guarding, no rebound, no hepatosplenomegaly, no masses. EXTREMITIES: 2+ pulses, warm, well-perfused, trace edema R DP region, good pulses, no TTP, full ROM R foot. NEUROLOGICAL: Cranial nerves II through XII grossly intact. Normal speech, gait not observed. PSYCH: Normal mood, normal affect. SKIN: Warm, dry, normal turgor, no rashes or lesions noted. LABS Microbiology 06/09/20 00:05 Blood - Peripheral Venous Blood Culture - Preliminary NO GROWTH OBTAINED AFTER 72 HOURS, INCUBATION TO CONTINUE FOR 2 DAYS. 06/09/20 00:05 Blood - Peripheral Venous Blood Culture - Preliminary NO GROWTH OBTAINED AFTER 72 HOURS, INCUBATION TO CONTINUE FOR 2 DAYS. 06/08/20 23:16 Urine - Urine Clean Catch Urine Culture - Final NO GROWTH OBTAINED Laboratory Tests 06/08/20 06/08/20 06/08/20 20:21 21:30 21:30 WBC 18.2 H RBC 4.29 Hgb 12.8 Hct 38.5 MCV 89.7 MCH 29.7 MCHC 33.1 RDW 14.2 Plt Count 181 MPV 8.6 Absolute Neuts (auto) 15.7 H Neutrophils % 86.0 H Lymphocytes % 8.1 Monocytes % 5.5 Eosinophils % 0.1 Basophils % 0.3 Nucleated RBC % 0 Sodium 135 L Potassium 4.1 Chloride 102 Carbon Dioxide 26 Anion Gap 8 BUN 9.8 Creatinine 1.1 Est GFR (CKD-EPI)AfAm 108.32 Est GFR (CKD-EPI)NonAf 93.46 Random Glucose 88 Uric Acid Calcium 9.4 Phosphorus Magnesium 1.9 Total Bilirubin 0.9 AST 36 ALT 24 Alkaline Phosphatase 59 Total Protein 7.7 Albumin 3.8 Lipase 355 Urine Color Urine Appearance Urine pH Ur Specific [place] Urine Protein Urine Glucose (UA) Urine Ketones Urine Blood Urine Nitrite Urine Bilirubin Urine Urobilinogen Ur Leukocyte Esterase COVID-19 (JAG) Not detected 06/08/20 06/09/20 06/09/20 23:16 07:00 07:00 WBC 12.1 H RBC 4.14 Hgb 12.1 Hct 37.0 MCV 89.5 MCH 29.2 MCHC 32.7 RDW 14.4 Plt Count 169 MPV 8.7 Absolute Neuts (auto) 9.7 H Neutrophils % 80.2 Lymphocytes % 12.5 D Monocytes % 6.2 Eosinophils % 0.7 D Basophils % 0.4 Nucleated RBC % 0 Sodium 138 Potassium 4.1 Chloride 106 Carbon Dioxide 27 Anion Gap 6 L BUN 10.5 Creatinine 1.0 Est GFR (CKD-EPI)AfAm 121.55 Est GFR (CKD-EPI)NonAf 104.88 Random Glucose 90 Uric Acid Calcium 8.4 L Phosphorus 2.4 L Magnesium 1.7 L Total Bilirubin 0.4 AST 19 ALT 20 Alkaline Phosphatase 50 Total Protein 6.6 Albumin 3.3 L Lipase Urine Color Yellow Urine Appearance Clear Urine pH 6.5 Ur Specific [place] 1.012 Urine Protein Negative Urine Glucose (UA) Negative Urine Ketones Negative Urine Blood Negative Urine Nitrite Negative Urine Bilirubin Negative Urine Urobilinogen 1.0 Ur Leukocyte Esterase Negative COVID-19 (JAG) 06/10/20 06/10/20 07:00 07:00 WBC 7.7 RBC 4.24 Hgb 12.5 Hct 37.9 MCV 89.5 MCH 29.6 MCHC 33.0 RDW 14.4 Plt Count 170 MPV 8.3 Absolute Neuts (auto) 4.7 Neutrophils % 60.8 D Lymphocytes % 24.7 D Monocytes % 11.5 H D Eosinophils % 2.4 D Basophils % 0.6 Nucleated RBC % 0 Sodium 136 Potassium 4.1 Chloride 103 Carbon Dioxide 28 Anion Gap 5 L BUN 9.3 Creatinine 1.0 Est GFR (CKD-EPI)AfAm 121.55 Est GFR (CKD-EPI)NonAf 104.88 Random Glucose 85 Uric Acid 5.0 Calcium 8.7 Phosphorus 3.0 Magnesium 2.1 Total Bilirubin 0.4 AST 17 ALT 21 Alkaline Phosphatase 44 L Total Protein 6.7 Albumin 3.3 L Lipase Urine Color Urine Appearance Urine pH Ur Specific [place] Urine Protein Urine Glucose (UA) Urine Ketones Urine Blood Urine Nitrite Urine Bilirubin Urine Urobilinogen Ur Leukocyte Esterase COVID-19 (JAG) Home Medications Medication Instructions Recorded Amoxicillin/Potassium Clav 1 each PO BID #8 tablet 06/12/20 [Augmentin 875-125 Tablet] Current Medications Generic Name Dose Route Start Last Admin Trade Name Freq PRN Reason Stop Dose Admin Acetaminophen 650 mg 06/09/20 13:10 06/11/20 00:56 Tylenol - PO 650 mg Q4H PRN Administration PAIN LEVEL 6-10 Amoxicillin/Clavulanate Potassium 1 tab 06/12/20 09:44 06/12/20 10:52 Augmentin - 875mg Tablet PO 1 tab BID@0800,1730 NAN Administration HOSPITAL COURSE: 25 M no significant PMHx, presents with R foot pain, erythema, swelling. Admitted for R foot cellulitis, was started on Rocephin IV w/ marked improvement of symptoms. MRI done neg., for osteomyelitis. Patient stable for DC home with PO Augmentin and follow up w/ Dr. Jean (PCP). Date of Admission:06/09/20 Date of Discharge: 06/12/20 Discharge medications: Home Medications Medication Instructions Recorded Amoxicillin/Potassium Clav 1 each PO BID #8 tablet 06/12/20 [Augmentin 875-125 Tablet] Minutes to complete discharge: 30 Discharge Summary Problems reviewed: Yes Reason For Visit: CELLULITIS OF RIGHT FOOT Current Active Problems Cellulitis of right foot (Acute) Vomiting (Acute) Condition: Improved - Instructions Diet, Activity, Other Instructions: You presented to the hospital with Medication Changes: 1. Augmentin 875mg twice a day Follow up with the following physicians: 1. PCP in one week (Dr. Jean), please call to schedule follow up as your work up is not complete until you do so Please continue to monitor your diet as you need to intake less sugar and drink plenty of fluids. Continue all your other medications as prescribed Please return to the ER if you have any signs or symptoms of chest pain, shortness of breath, uncontrollable fever, chills, nausea, vomiting, numbness, tingling, or weakness in any part of your body. Please return to the ER if symptoms persist, worsen, or new symptoms arise. Referrals: Sophy Jean MD [Primary Care Provider] - Disposition: HOME - Home Medications Comprehensive Discharge Medication List: Ambulatory Orders Amoxicillin/Potassium Clav [Augmentin 875-125 Tablet] 1 each PO BID #8 tablet 06/12/20 This patient is new to me today: No Emergency Visit: Yes ED Registration Date: 06/09/20 Care time: The patient presented to the Emergency Department on the above date and was hospitalized for further evaluation of their emergent condition. Critical Care patient: No - Discharge Referral Referred to [facility] Med P.C.: No
== END 2020-06-12 15:08 | disposition home or self-care (01) | DRG 720 ==
LOC: JER 19:00 → JERBED 06-09 00:25 → J8W 06-09 04:05
PROVIDERS: ADMIT Hospitalist
DX: A41.9 Sepsis, unspecified organism (principal); R11.2 Nausea with vomiting, unspecified; D72.829 Elevated white blood cell count, unspecified; F12.188 Cannabis abuse with other cannabis-induced disorder; L03.115 Cellulitis of right lower limb
CPT/HCPCS: 36415; 71046-TC-FY; 73630-TC-RT-FY; 73718-TC-RT; 76882-TC-RT-FY; 80053; 81003; 83690; 83735; 84100; 84550; 85025; 87040; 87086; 93005; 93010; 99285-25; J0131; U0003